=== PATIENT | female | born 1995 | race Caucasian/White ===

== ENCOUNTER 2017-12-20 08:19 | Emergency (ER) | payer OTHER ==
--- NOTE | 2017-12-20 08:26 | ER Document Report ---
HPI - HPI Patient complains to provider of: Left ankle injury Onset: Yesterday Pain Level: 3 Context: 22-year-old female inverted her left ankle while walking the dog last night. Has pain in the left lateral malleoli. No foot tenderness. Neurovascular distally is intact. There is mild swelling Associated Symptoms: None Exacerbated by: Movement, Walking Relieved by: Denies Similar symptoms previously: No Recently seen / treated by doctor: No - ROS ROS below otherwise negative: Yes Systems Reviewed and Negative: Yes All other systems reviewed and negative Past Medical History - General Information source: Patient - Social History Smoking Status: Unknown if Ever Smoked Lives with: Family Family History: None - Medical History Medical History: Negative Surgical Hx: Negative Vertical Provider Document - CONSTITUTIONAL Agree With Documented VS: Yes Exam Limitations: No Limitations - INFECTION CONTROL TRAVEL OUTSIDE OF THE [place] IN LAST 30 DAYS: No - MUSCULOSKELETAL/EXTREMETIES Musculoskeletal/Extremeties: MAEW, FROM, Tender - Lateral left malleolus, Edema - NEURO Level of Consciousness: Alert Motor/Sensory: No Motor Deficit, No Sensory Deficit - DERM Integumentary: No Rash Course - Re-evaluation Re-evalutation: 12/20/17 09:16 X-rays negative per radiologist splint her and give crutches, motrin for pain. Procedures - Immobilization Left Ankle Time completed: 09:42 Pre-Proc Neuro Vasc Exam: Normal Immobilizer type: Ankle stirrup, Crutches Performed by: PCT Post-Proc Neuro Vasc Exam: Normal Alignment checked and good: Yes Discharge - Discharge Clinical Impression: Left ankle sprain Condition: Good Disposition: HOME, SELF-CARE Instructions: Acetaminophen, Ankle Stirrup Splint (OM), Use of Crutches (OM) , Ibuprofen (General) (OM), Sprained Ankle (OM) Additional Instructions: Splint for 1 week crutches for several days See the orthopedic doctor for follow-up Copy of negative imaging report given to you Tylenol 4000 mg/day for pain Motrin 3 times a day for inflammation Prescriptions: Ibuprofen [Motrin 600 mg Tablet] 600 mg PO Q8HP PRN #30 tablet PRN Reason: Forms: Return to Work Referrals: KULWINDER DOUGLAS MD [ACTIVE STAFF] - 12/21/17
[2017-12-20 08:32] VITALS: BP 135/81
--- NOTE | 2017-12-20 09:11 | RADIOLOGY REPORT (SQ) ---
EXAM DESCRIPTION: ANKLE LEFT COMPLETE COMPLETED DATE/TIME: 12/20/2017 8:54 am REASON FOR STUDY: twisted ankle COMPARISON: None. NUMBER OF VIEWS: Three views. TECHNIQUE: AP, lateral, and oblique radiographic images acquired of the left ankle. LIMITATIONS: None. FINDINGS: MINERALIZATION: Normal. BONES: No acute fracture or dislocation. No worrisome bone lesions. JOINTS: No effusions. SOFT TISSUES: Diffuse swelling. No foreign body. OTHER: No other significant finding. IMPRESSION: Soft tissue injury. TECHNICAL DOCUMENTATION: JOB ID: [id number] [employer]- All Rights Reserved Reading location - IP/workstation name: [email or web address]
== END 2017-12-20 09:33 | disposition home or self-care (01) ==
LOC: ER 08:19
PROC: 2W3RX1Z Immobilization of Left Lower Leg using Splint (ICD-10-PCS; principal; 2017-12-20)
DX: S93.402A Sprain of unspecified ligament of left ankle, initial encounter (principal); M79.89 Other specified soft tissue disorders; X50.1XXA Overexertion from prolonged static or awkward postures, initial encounter
CPT/HCPCS: 99283; 73610; 29515; L4350

== ENCOUNTER 2018-05-30 11:27 | Emergency (ER) | payer OTHER ==
--- NOTE | 2018-05-30 11:52 | ER Document Report ---
ED Medical Screen (RME) - General Chief Complaint: Laceration Stated Complaint: LACERATIONS TO RIGHT WRIST/HAND Time Seen by Provider: 05/30/18 11:44 Notes: Patient is a 22-year-old female that presents to the emergency department for chief complaint of right wrist laceration. Patient states she was at home, and her dogs apparently were getting excited, and she is try to stop him from jumping up on the pain glass window, and she reached out of the window and her hand went through the window causing 2 lacerations to her right wrist, she went to the fire department and they bandaged her, per the fire department's note, it stated that the patient threatened to kill herself with a knife, patient adamantly denies this at this time and is not normal or referring to. ROS: Other than noted above, the 12 point review of systems was reviewed with the patient and were negative, all pertinent findings are included in the HPI. PHYSICAL EXAMINATION: Vital signs reviewed. GENERAL: Well-appearing, well-nourished and in no acute distress. HEAD: Atraumatic, normocephalic. EYES: Pupils equal round extraocular movements intact, conjunctiva are normal. ENT: Nares patent NECK: Normal range of motion CV: Heart regular rate and rhythm LUNGS: No respiratory distress Musculoskeletal: Normal range of motion tendon function appears to be intact with wrist flexion and extension, his extension and flexion of the thumb opposition of the thumb as well. There are 2 lacerations noted to the radial aspect of the patient's right wrist. NEUROLOGICAL: Normal speech PSYCH: Normal mood, normal affect. MDM: Patient seen and examined for rapid initial assessment. Vital signs reviewed. A comprehensive ED assessment and evaluation of the patient, analysis of test results and completion of the medical decision making process will be conducted by additional ED providers. *Note is created using voice recognition software and may contain spelling, syntax or grammatical errors. TRAVEL OUTSIDE OF THE [place] IN LAST 30 DAYS: No - Related Data Allergies/Adverse Reactions: codeine Allergy (Verified 05/30/18 11:43) Past Medical History - Social History Frequency of alcohol use: None Drug Abuse: None Renal/ Medical History: Denies: Hx Peritoneal Dialysis Past Surgical History: Reports: Hx Orthopedic Surgery - right thumb, Hx Tonsillectomy Physical Exam - Vital signs Vitals: Temp Pulse Resp BP Pulse Ox 98 F 82 20 144/85 H 96 05/30/18 11:33 05/30/18 11:33 05/30/18 11:33 05/30/18 11:33 05/30/18 11:33 Course - Vital Signs Vital signs: Temp Pulse Resp BP Pulse Ox 98 F 82 20 144/85 H 96 05/30/18 11:33 05/30/18 11:33 05/30/18 11:33 05/30/18 11:33 05/30/18 11:33
[2018-05-30] MEDS ORDERED: LIDOCAINE 1%/EPINEPHRINE INJ 20 ML VIAL INJ ONE (11:55)
[2018-05-30] MEDS ORDERED: DIPH/PERTUSS(ACELL)/TETANUS VAC/PF 0.5 ML SYR (>=10YO) IM ONE (11:57)
--- NOTE | 2018-05-30 12:18 | RADIOLOGY REPORT (SQ) ---
EXAM DESCRIPTION: WRIST RIGHT 3 VIEWS COMPLETED DATE/TIME: 05/30/2018 12:11 pm REASON FOR STUDY: possible retained glass COMPARISON: None. NUMBER OF VIEWS: Three views. TECHNIQUE: AP, lateral, and oblique radiographic images acquired of the right wrist. LIMITATIONS: None. FINDINGS: MINERALIZATION: Normal. BONES: No acute fracture or dislocation. No worrisome bone lesions. Normal alignment. SOFT TISSUES: No soft tissue swelling. No foreign body. OTHER: No other significant finding. IMPRESSION: Laceration. No radiopaque foreign body is appreciated. TECHNICAL DOCUMENTATION: JOB ID: [id number] [employer]- All Rights Reserved Reading location - IP/workstation name: [email or web address]
--- NOTE | 2018-05-30 13:36 | ER Document Report ---
HPI <NOA MORAN - Last Filed: 05/30/18 15:53> - HPI Patient complains to provider of: Arm laceration Onset: This morning Onset/Duration: Sudden Quality of pain: Achy Pain Level: 2 Context: Patient was attempting to prevent a dog from jumping on glass doors and accidentally put her hand through the window pain. Patient with 2 lacerations to right wrist area. Patient denies any suicidal or homicidal ideation. Associated Symptoms: Other - Right wrist laceration Exacerbated by: Movement Relieved by: Denies Similar symptoms previously: No Recently seen / treated by doctor: No - ROS ROS below otherwise negative: Yes Systems Reviewed and Negative: Yes All other systems reviewed and negative - CONSTITUTIONAL Constitutional: DENIES: Fever, Chills - NEURO Neurology: DENIES: Weakness - REPRODUCTIVE Reproductive: DENIES: : - MUSCULOSKELETAL Musculoskeletal: REPORTS: Extremity pain - DERM Skin Color: Normal, [place] Skin Problems: Laceration <TYLER BABCOCK - Last Filed: 05/30/18 19:31> - HPI Time Seen by Provider: 05/30/18 11:44 Past Medical History - General Information source: Patient - Social History Smoking Status: Never Smoker Frequency of alcohol use: None Drug Abuse: None Occupation: [employer] Lives with: Family Family History: None Patient has suicidal ideation: No Patient has homicidal ideation: No - Medical History Medical History: Negative Renal/ Medical History: Denies: Hx Peritoneal Dialysis Past Surgical History: Reports: Hx Orthopedic Surgery - right thumb, Hx Tonsillectomy <TYLER BABCOCK - Last Filed: 05/30/18 19:31> Vertical Provider Document - CONSTITUTIONAL Agree With Documented VS: Yes Exam Limitations: No Limitations General Appearance: WD/WN, No Apparent Distress - INFECTION CONTROL TRAVEL OUTSIDE OF THE [place] IN LAST 30 DAYS: No - HEENT HEENT: Atraumatic, Normocephalic - NECK Neck: Normal Inspection, Supple - RESPIRATORY Respiratory: Breath Sounds Normal, No Respiratory Distress - CARDIOVASCULAR Cardiovascular: Regular Rate, Regular Rhythm Pulses: Normal: Radial - MUSCULOSKELETAL/EXTREMETIES Musculoskeletal/Extremeties: MAEW, FROM, Tender - Tenderness to the volar aspect right wrist Notes: No radial nerve, median nerve or ulnar nerve deficits. - NEURO Level of Consciousness: Awake, Alert, Appropriate Motor/Sensory: No Motor Deficit - DERM Integumentary: Warm, Dry, Laceration - 2 lacerations volar surface of her right wrist, more superior laceration measures 3 cm, more distal laceration is irregular with a flap measuring about 3 cm <TYLER BABCOCK - Last Filed: 05/30/18 19:31> Course - Re-evaluation Re-evalutation: 05/30/18 15:53 I independently evaluated this patient. She has multiple lacerations to left wrist that have been sutured, skin edges well approximated no active bleeding. X-ray reviewed and shows no retained foreign body. I agree with above assessment and discharged home. - Vital Signs Vital signs: Temp Pulse Resp BP Pulse Ox 98 F 82 20 144/85 H 96 05/30/18 11:33 05/30/18 11:33 05/30/18 11:33 05/30/18 11:33 05/30/18 11:33 <NOA MORAN - Last Filed: 05/30/18 15:53> - Re-evaluation Re-evalutation: 05/30/18 13:33 Charge nurse spoke with the fire department who had initially evaluated patient at her home and states that on their copy of their paperwork there was no mention of any suicidal ideation. Review of the carbon copy documentation does appear to have 2 different styles for dates, signatures, information source. Suspect that statement "threatened to kill himself with a knife"is likely referring to a different call that the fire department had gone on especially given the fact that patient is female and there appears to be 2 different styles of handwriting overlapping on the same signature line, same date line, and information source line. Pt continues to deny any concerns about suicidal or homicidal ideation. No previous history of depression. Patient's family member at bedside states that there is a broken window pane in the home that does cooperate with patient's story of reported events. - Vital Signs Vital signs: Temp Pulse Resp BP Pulse Ox 98 F 82 20 144/85 H 96 05/30/18 11:33 05/30/18 11:33 05/30/18 11:33 05/30/18 11:33 05/30/18 11:33 - Diagnostic Test Radiology reviewed: Image reviewed, Reports reviewed <TYLER BABCOCK - Last Filed: 05/30/18 19:31> Procedures - Laceration/Wound Repair Right Proximal Wrist Wound length (cm): 3 Wound's Depth, Shape: Irregular Laceration pre-procedure: Shur-Clens applied Anesthetic type: 1% Lidocaine w/epi Wound explored: Clean, No foreign body removed Wound Repaired With: Sutures Suture Size/Type: 4:0, Nylon Number of Sutures: 7 Layer Closure?: No Post-procedure wound care: Sterile dressing applied Post-procedure NV exam normal: Yes Complications: No Right Distal Wrist Wound length (cm): 3 Wound's Depth, Shape: Irregular, Flap Laceration pre-procedure: Shur-Clens applied Anesthetic type: 1% Lidocaine w/epi Wound explored: Clean Wound Debrided: Minimal Wound Repaired With: Sutures Suture Size/Type: 4:0, Nylon Number of Sutures: 9 Layer Closure?: No Post-procedure wound care: Sterile dressing applied Post-procedure NV exam normal: Yes Complications: No Hands front picture: 1 - lac 2 - lac <TYLER BABCOCK - Last Filed: 05/30/18 19:31> Discharge <NOA MORAN - Last Filed: 05/30/18 15:53> <TYLER BABCOCK - Last Filed: 05/30/18 19:31> - Discharge Clinical Impression: Wrist laceration Qualifiers: Encounter type: initial encounter Laterality: right Qualified Code(s): S61.511A - Laceration without foreign body of right wrist, initial encounter Condition: Stable Disposition: HOME, SELF-CARE Instructions: Laceration Care ([facility]), Prophylactic Antibiotic ([facility]), Tetanus Immunization Given ([facility]) Additional Instructions: Return immediately for any new or worsening symptoms Followup with your primary care provider, call tomorrow to make a followup appo intment Suture removal in 12 days Follow-up with hand surgeon for any persistent problems, weakness numbness or tingling Prescriptions: Cephalexin Monohydrate [Keflex 500 mg Capsule] 500 mg PO Q6H 5 Days capsule Forms: Return to Work Referrals: LAINEY ACOSTA DO [ACTIVE STAFF] - Follow up as needed
[2018-05-30 16:23] VITALS: BP 144/80
== END 2018-05-30 16:23 | disposition home or self-care (01) ==
LOC: ER 11:27
DX: S61.511A Laceration without foreign body of right wrist, initial encounter (principal); W25.XXXA Contact with sharp glass, initial encounter; Y93.89 Activity, other specified; Y92.009 Unspecified place in unspecified non-institutional (private) residence as the place of occurrence of the external cause
CPT/HCPCS: 99283; 90471; 73110; 90715; 12002; J3490

== ENCOUNTER 2018-06-13 12:26 | Emergency (ER) | payer OTHER ==
[2018-06-13 12:31] VITALS: BP 143/95
--- NOTE | 2018-06-13 13:11 | ER Document Report ---
ED Suture/Wound Recheck - General Chief Complaint: Suture Removal Stated Complaint: SUTURE REMOVAL/RIGHT THUMB,WRIST Time Seen by Provider: 06/13/18 12:55 Primary Care Provider: LAINEY ACOSTA DO [ACTIVE STAFF] - Follow up as needed Mode of Arrival: Ambulatory Information source: Patient Notes: 22-year-old female presented to ED for suture removal from right wrist. She was seen on 05/30/2018 for 2 lacerations to the right wrist after she prevented the dog from jumping through the glass door and accidentally cut her wrist on the when the pain. Patient is alert oriented respirations regular and unlabored speaking in full sentences walks with even steady gait. Wounds are well-healed no redness no drainage no discomfort. TRAVEL OUTSIDE OF THE [place] IN LAST 30 DAYS: No - HPI Previous ED treatment: Laceration repair Antibiotics given previously: Prescription Quality of pain: No pain Severity: None Pain Level: Denies Context: Injury Symptoms since procedure: No complaints Exacerbated by: Movement Relieved by: Denies - Related Data Allergies/Adverse Reactions: codeine Allergy (Verified 05/30/18 11:43) Past Medical History - General Information source: Patient - Social History Smoking Status: Never Smoker Frequency of alcohol use: Rare Drug Abuse: None Occupation: field service manager Lives with: Family Family History: None Patient has suicidal ideation: No Patient has homicidal ideation: No - Past Medical History Cardiac Medical History: Reports: None Pulmonary Medical History: Reports: None EENT Medical History: Reports: None Neurological Medical History: Reports: None Endocrine Medical History: Reports: None Renal/ Medical History: Reports: None Malignancy Medical History: Reports: None GI Medical History: Reports: None Musculoskeletal Medical History: Reports Hx Musculoskeletal Deformity, Reports Hx Musculoskeletal Trauma Psychiatric Medical History: Reports: None Traumatic Medical History: Reports: Hx Fractures - Ankle Infectious Medical History: Reports: None Past Surgical History: Reports: Hx Adenoidectomy, Hx Orthopedic Surgery - right thumb, Hx Tonsillectomy Review of Systems - Review of Systems Constitutional: No symptoms reported EENT: No symptoms reported Cardiovascular: No symptoms reported Respiratory: No symptoms reported Gastrointestinal: No symptoms reported Genitourinary: No symptoms reported Female Genitourinary: No symptoms reported Musculoskeletal: No symptoms reported Skin: Other - Healing laceration to the right wrist times 2 sutures were removed in the ER Hematologic/Lymphatic: No symptoms reported Neurological/Psychological: No symptoms reported -: Yes All other systems reviewed and negative Physical Exam - Vital signs Vitals: Temp Pulse Resp BP Pulse Ox 98 F 79 18 143/95 H 99 06/13/18 12:31 06/13/18 12:31 06/13/18 12:31 06/13/18 12:31 06/13/18 12:31 Interpretation: Normal - General General appearance: Appears well, Alert - HEENT Head: Normocephalic, Atraumatic Eyes: Normal Pupils: PERRL - Respiratory Respiratory status: No respiratory distress Chest status: Nontender Breath sounds: Normal Chest palpation: Normal - Cardiovascular Rhythm: Regular Heart sounds: Normal auscultation Murmur: No - Abdominal Inspection: Normal Distension: No distension Bowel sounds: Normal Tenderness: Nontender Organomegaly: No organomegaly - Back Back: Normal, Nontender - Extremities General upper extremity: Nontender, Normal color, Normal ROM, Normal temperature General lower extremity: Normal inspection, Nontender, Normal color, Normal ROM, Normal temperature, Normal weight bearing. No: Erika's sign Wrist: Other - Healing laceration x2 to the right wrist - Neurological Neuro grossly intact: Yes Cognition: Normal Orientation: AAOx4 Mobile Coma Scale Eye Opening: Spontaneous Nasir Coma Scale Verbal: Oriented Nasir Coma Scale Motor: Obeys Commands Mobile Coma Scale Total: 15 Speech: Normal Motor strength normal: LUE, RUE, LLE, RLE Sensory: Normal - Psychological Associated symptoms: Normal affect, Normal mood - Skin Skin Temperature: Warm Skin Moisture: Dry Skin Color: Normal Course - Re-evaluation Re-evalutation: 06/13/18 21:45 She is were removed bacitracin and Band-Aid applied and patient was discharged home with instructions to follow-up with primary care doctor for any increased pain or any other symptoms. Verbalized understanding and agreement with treatment plan. Patient was instructed to wear gloves when putting her hands in any water or cooking. - Vital Signs Vital signs: Temp Pulse Resp BP Pulse Ox 98 F 79 18 143/95 H 99 06/13/18 12:31 06/13/18 12:31 06/13/18 12:31 06/13/18 12:31 06/13/18 12:31 Discharge - Discharge Clinical Impression: Visit for suture removal Condition: Stable Disposition: HOME, SELF-CARE Instructions: Family Physicians / Practices, Suture Removal Additional Instructions: SOAP CLEANSING: Gently wash the wound daily using a mild soap (like Ivory, Phisoderm, Neutrogena). Use warm water, rubbing gently until all debris, ooze, and crusting have been washed from the wound. Allow to dry briefly (about 10 minutes) after cleaning. Repeat this cleansing at least three times a day for the first two days and then once or twice a day. ANTIBIOTIC OINTMENT PROTECTION: Your wounds are such that dressing them is not practical or optional. After cleansing, you should apply a thin coating of antibiotic ointment (Bacitracin, not Neosporin) to the wounds at least three times daily. This lessens infection risk, and may decrease the amount of scarring. Use a q-tip or dull butter knife, not your finger, to apply this ointment. Any debris or ooze which builds up in the ointment should be gently rubbed off with a sterile gauze pad. Harder crusting may need to be gently scrubbed off with a clean wash cloth with soap and warm water, perhaps applying a warm, wet wash cloth to the wound for ten minutes first. Development of redness, severe itching, or blistering may mean allergy to the ointment. See the doctor. Continue your antibiotics as scribed until they are completed. Continue your Tylenol as needed for the pain. Do not that the laceration sit in soapy water for the next 2 weeks. Use sunscreen to the area when outside after it is completely healed for the next 24 months. No strenuous lifting for the next 2 weeks. FOLLOW-UP CARE: If you have been referred to a physician for follow-up care, call the physicians office for an appointment as you were instructed or within the next two days. If you experience worsening or a significant change in your symptoms, notify the physician immediately or return to the Emergency Department at any time for re-evaluation. Follow-up with the hand surgeon and/or primary care doctor for any persistent problems weakness numbness or tingling. Forms: Elevated Blood Pressure, Special Work Note Referrals: LAINEY ACOSTA, [ACTIVE STAFF] - Follow up as needed
== END 2018-06-13 13:17 | disposition home or self-care (01) ==
LOC: ER 12:26
DX: S61.511D Laceration without foreign body of right wrist, subsequent encounter (principal); W25.XXXD Contact with sharp glass, subsequent encounter; Z88.5 Allergy status to narcotic agent

== ENCOUNTER 2019-12-22 14:08 | Emergency (ER) | payer OTHER ==
[2019-12-22 14:19] VITALS: BP 142/97
[2019-12-22] MEDS ORDERED: IBUPROFEN 600 MG TABLET PO ONE (14:33)
[2019-12-22] MEDS ORDERED: ACETAMINOPHEN 325 MG TABLET PO ONE (14:33)
--- NOTE | 2019-12-22 14:34 | ER Document Report ---
HPI - HPI Time Seen by Provider: 12/22/19 14:23 Context: Patient is a 24-year-old female who presents the emergency department with the chief complaint of a lump to her left lower jaw area. Patient states that she has had her symptoms for the past week. She denies any fever, body aches, chil ls, ear pain, or sore throat. Denies any teeth pain. Denies any difficulty breathing. - ROS Systems Reviewed and Negative: Yes All other systems reviewed and negative - CONSTITUTIONAL Constitutional: DENIES: Fever, Chills - EENT Notes: Enlarged lymph node to left lower jaw - RESPIRATORY Respiratory: DENIES: Trouble Breathing, Coughing - GASTROINTESTINAL Gastrointestinal: DENIES: Nausea, Patient vomiting - REPRODUCTIVE Reproductive: DENIES: : - MUSCULOSKELETAL Musculoskeletal: DENIES: Extremity pain - DERM Skin Color: Normal Skin Problems: None Past Medical History - General Information source: Patient - Social History Smoking Status: Never Smoker Chew tobacco use (# tins/day): No Drug Abuse: None Family History: None Renal/ Medical History: Denies: Hx Peritoneal Dialysis Musculoskeletal Medical History: Reports Hx Musculoskeletal Deformity, Reports Hx Musculoskeletal Trauma Traumatic Medical History: Reports: Hx Fractures - Ankle Past Surgical History: Reports: Hx Adenoidectomy, Hx Orthopedic Surgery - right thumb, Hx Tonsillectomy Vertical Provider Document - CONSTITUTIONAL Agree With Documented VS: Yes Exam Limitations: No Limitations General Appearance: No Apparent Distress - INFECTION CONTROL TRAVEL OUTSIDE OF THE [place] IN LAST 30 DAYS: No - HEENT HEENT: Atraumatic, Normocephalic, PERRLA. negative: Conjuctival Injection, Pharyngeal Exudate, Pharyngeal Tenderness, Pharyngeal Erythema, Tympanic Membrane Red, Tympanic Membrane Bulging - NECK Neck: Normal Inspection, Lymphadenopathy-Left - Submandibular - RESPIRATORY Respiratory: Breath Sounds Normal, No Respiratory Distress - CARDIOVASCULAR Cardiovascular: Regular Rate, Regular Rhythm Pulses: Normal: Radial - MUSCULOSKELETAL/EXTREMETIES Musculoskeletal/Extremeties: FROM - NEURO Level of Consciousness: Awake, Alert, Appropriate - DERM Integumentary: Warm, Dry, No Rash Course - Re-evaluation Re-evalutation: 12/22/19 16:26 Rapid strep test is negative. The "lump" the patient is feeling is most consistent with submandibular lymphadenopathy. Patient will be started on penicillin. Advised her to follow-up with the dentist to have her teeth evaluated, which is most likely the cause of her pain. Have a low suspicion for an abscess. Airway is patent. Follow-up precautions were given. Verbal discharge instructions were given to the patient. They verbalized understanding. They are stable for discharge. - Vital Signs Vital signs: Temp Pulse Resp BP Pulse Ox 98.7 F 130 H 18 142/97 H 98 12/22/19 14:16 12/22/19 14:16 12/22/19 14:16 12/22/19 14:16 12/22/19 14:16 Discharge - Discharge Clinical Impression: Lymphadenopathy Condition: Stable Disposition: HOME, SELF-CARE Additional Instructions: You are seen in the emergency department for a lump underneath your jaw. That lump is a lymph node. You are being started on antibiotics, and is this is most likely cause from your tooth. Please follow-up with a dentist in 1 week. Take your antibiotics as prescribed. Take ibuprofen and Tylenol for pain relief. Prescriptions: Penicillin V Potassium [Penicillin Vk 500 mg Tablet] 500 mg PO BID #14 tablet Forms: Return to Work
== END 2019-12-22 16:32 | disposition home or self-care (01) ==
LOC: ER 14:08
DX: R59.1 Generalized enlarged lymph nodes (principal)
CPT/HCPCS: 87070; 87880; 99283